=== PATIENT | female | born 1975 | race Caucasian/White ===

== ENCOUNTER 2016-11-20 19:55 | Emergency (ER) | payer BC ==
[2014-04-04 06:17] VITALS: BMI 49.6
[~2016-11-20 19:55] MED LIST: FERROUS SULFAT325 MG PO; IBUPROFEN600 MG PO; LOVENOX150 MG/ML SQ; PEPCID20 MG PO; PERCOCET 5-3251 TAB PO; PRENATAL COMPLE1 TAB PO
[2016-11-20 20:40] LABS: ALBUMIN 2.9 g/dL (3.4-5.0); ANION GAP 9.3 mmol/L (8-16); BILIRUBIN - TOTAL 0.59 mg/dL (0.2-1.3); CALCIUM 8.9 mg/dL (8.5-10.1); CARBON DIOXIDE 29.6 mmol/L (21.0-32.0); POTASSIUM - SERUM 3.9 mmol/L (3.5-5.1); PROTEIN - SERUM 7.6 g/dL (6.4-8.2)
[2016-11-20 20:46] LABS: HEMATOCRIT 39.2 % (36.0-48.0); HEMOGLOBIN 12.3 g/dL (12-16); MCH 29.6 pg (26.0-34.0); MCHC 31.4 g/dL (31.0-37.0); MCV 94.2 fL (80.0-100.0); MEAN PLATELET VOLUME 9.4 fL (7.4-10.4); PLATELET COUNT 312 10x3/uL (130-400); RBC 4.16 10x6/uL (4.00-5.40); RDW 15.3 % (11.5-14.5); WBC 21.3 10x3/uL (4.8-10.8)
[2016-11-20 21:03] LABS: LYMPHOCYTES 12 % (15-50); MONOCYTES 5 % (2-11); NEUTROPHILS 83 % (40-80); PLATELET ESTIMATE NORMAL
== END 2016-11-20 22:00 | disposition home or self-care (01) ==
LOC: D.ER 19:55
PROVIDERS: Emergency Medicine; Nurse Practitioner Family
DX: L03.311 Cellulitis of abdominal wall (principal); F41.9 Anxiety disorder, unspecified